=== PATIENT | male | born 1965 | race Caucasian/White ===

== ENCOUNTER 2022-10-19 22:40 | Emergency (ER) | payer MEDICAID, OTHER ==
[~2022-10-19] VITALS: Ht 175.3 cm; Wt 77.1 kg
[2022-10-20] MEDS ORDERED: OXYCODONE/APAP 5-325 MG TABLET PO ONE (00:45)
[2022-10-20] MEDS ORDERED: ONDANSETRON ODT 4 MG TAB.RAPDIS SL ONE (00:45)
[2022-10-20] MEDS ORDERED: VANCOMYCIN IV 1,000 MG in IV DEXTROSE 5% 250 ML IV ONE (00:45)
[2022-10-20] MEDS ORDERED: OXYCODONE/APAP 5-325 MG TABLET ONE (00:48)
[2022-10-20] MEDS ORDERED: VANCOMYCIN IV 200 ML ONE (00:48)
[2022-10-20] MEDS ORDERED: ONDANSETRON ODT 4 MG TAB.RAPDIS ONE (00:48)
[2022-10-20 01:12] LABS: HEMATOCRIT 46.6 % (36.7-47.1); MEAN CORPUSCULAR HEMOGLOBIN 31.6 uug (23.8-33.4); MEAN CORPUSCULAR VOLUME 93.4 fL (73.0-96.2); PLATELET COUNT (AUTO) 210 K/uL (152-348)
[2022-10-20 01:17] LABS: CREATININE 1.6 mg/dL (0.6-1.3); POTASSIUM 4.3 mmol/L (3.5-5.1)
[2022-10-20 01:22] LABS: BILIRUBIN,DIRECT 0.1 mg/dL (0.0-0.2); BILIRUBIN,TOTAL 0.2 mg/dL (0.2-1.0); TOTAL PROTEIN, SERUM 7.4 g/dL (6.4-8.2)
--- NOTE | 2022-10-20 03:05 | NUR ---
Received call back from Ajay, [employer] [facility], with transfer information, Pt going to [facility], Room 2284A [facility], Accepted by Dr. Natarajan, Room to report .
--- NOTE | 2022-10-20 03:15 | NUR ---
Called [facility] ambulance for BLS transfer to [facility], eta 30 min ~[phone].
[2022-10-20] MEDS ORDERED: HYDROCODONE/APAP 10-325 MG TABLET ONE ×2 (03:29→03:34)
[2022-10-20] MEDS ORDERED: HYDROCODONE/APAP 10-325 MG TABLET PO ONE ×2 (03:30→03:45)
--- NOTE | 2022-10-20 03:36 | NUR ---
Report given to Ev[facility] G[facility].
--- NOTE | 2022-10-20 03:38 | NUR ---
Pt out of ER via ambulance gurney, report and documentation given to [facility], ADINA, no acute signs of distress, all belongings taken.
== END 2022-10-20 03:40 | disposition short-term general hospital (02) ==
LOC: ER 22:40
DX: E11.621 Type 2 diabetes mellitus with foot ulcer (principal); L97.529 Non-pressure chronic ulcer of other part of left foot with unspecified severity; L03.116 Cellulitis of left lower limb; Z86.73 Personal history of transient ischemic attack (TIA), and cerebral infarction without residual deficits; F17.290 Nicotine dependence, other tobacco product, uncomplicated; Z86.19 Personal history of other infectious and parasitic diseases; F43.20 Adjustment disorder, unspecified; Z20.822 Contact with and (suspected) exposure to COVID-19; E11.52 Type 2 diabetes mellitus with diabetic peripheral angiopathy with gangrene; I96 Gangrene, not elsewhere classified; F19.10 Other psychoactive substance abuse, uncomplicated
CPT/HCPCS: 99284; 96365; 96366; 87426; 99406; 80076; 80048; 82009; 85025; 87040 ×2; 36415; 73630; J3370; Q0162